=== PATIENT | male | born 1940 | race Caucasian/White ===

== ENCOUNTER → 2017-05-28 | Outpatient (CLI) | payer MEDICARE, OTHER ==
[~2017-05-28] MED LIST: ACTO45TA8 PO; AMLO5 PO; ASPI81CH CHEW; GLUC10TA3 PO; LIPI40TA PO; METF500 PO; MOBI15TA PO; OXYC1TAB63 PO; VESI5TAB PO; XARE20TA PO; ZETI10TA5 PO; ZOLP5TAB3 PO; [UNRECOGNIZED DRUG - CODE] PO
[2017-05-28 13:47] LABS: ANION GAP 6 MEQ/L (5-15); AST (GOT) 14 U/L (15-37); BICARBONATE 31.7 MEQ/L (21.0-32.0); BLOOD UREA NITROGEN 20 MG/DL (7-18); CHLORIDE 101 MEQ/L (98-107); GLOMERULAR FILTRATION RATE 58 ML/MIN (>89); POTASSIUM 4.4 MEQ/L (3.5-5.1); SODIUM (NA) 139 MEQ/L (136-145)
[2017-05-28 14:03] LABS: ALKALINE PHOSPHATASE 90 U/L (45-117); ALT (GPT) 17 U/L (12-78); GLUCOSE,FASTING 183 MG/DL (74-99); HDL CHOLESTEROL 72.7 MG/DL (40.0-60.0); LDL CHOLESTEROL 59 MG/DL (0-99); TOTAL BILIRUBIN ADULT 0.3 MG/DL (0.2-1.0)
== END ==
LOC: PLAB 08:43
PROVIDERS: ATTEND Family Medicine
DX: E78.2 Mixed hyperlipidemia (principal)
CPT/HCPCS: 36415; 80053; 80061

== ENCOUNTER → 2017-10-01 | Outpatient (CLI) | payer MEDICARE, OTHER ==
[2017-10-01 13:44] LABS: ALBUMIN 3.7 GM/DL (3.4-5.0); AST (GOT) 18 U/L (15-37); BICARBONATE 28.5 MEQ/L (21.0-32.0); BLOOD UREA NITROGEN 21 MG/DL (7-18); CALCIUM 9.2 MG/DL (8.5-10.1); CHLORIDE 101 MEQ/L (98-107); CREATININE 1.23 MG/DL (0.60-1.30); GLOMERULAR FILTRATION RATE 57 ML/MIN (>89); GLUCOSE,FASTING 215 MG/DL (74-99); SODIUM (NA) 137 MEQ/L (136-145)
[2017-10-01 13:46] LABS: CHOLESTEROL 151 MG/DL (120-200)
[2017-10-01 13:49] LABS: ALKALINE PHOSPHATASE 77 U/L (45-117); ALT (GPT) 18 U/L (12-78); CHOLESTEROL/ HDL RATIO 2.02 RATIO; HDL CHOLESTEROL 74.7 MG/DL (40.0-60.0); LDL CHOLESTEROL 58 MG/DL (0-99); TOTAL BILIRUBIN ADULT 0.4 MG/DL (0.2-1.0); TOTAL PROTEIN 7.1 GM/DL (6.4-8.2); TRIGLYCERIDES 93 MG/DL (42-150)
== END ==
LOC: PLAB 10:23
PROVIDERS: ATTEND Family Medicine
DX: E78.2 Mixed hyperlipidemia (principal); Z85.46 Personal history of malignant neoplasm of prostate
CPT/HCPCS: 36415; 80053; 80061; 84153

== ENCOUNTER → 2018-05-28 | Outpatient (CLI) | payer MEDICARE, OTHER ==
[~2018-05-28] MED LIST changes: +ACTO45TA15 PO; -ACTO45TA8 PO; +ASPI-516 CHEW; -ASPI81CH CHEW; +EZET10 PO; -VESI5TAB PO; +VESI5TAB2 PO; -ZETI10TA5 PO
[2018-05-28 16:47] LABS: ALBUMIN 3.6 GM/DL (3.4-5.0); BICARBONATE 24.5 MEQ/L (21.0-32.0); BLOOD UREA NITROGEN 15 MG/DL (7-18); CALCIUM 9.1 MG/DL (8.5-10.1); CHLORIDE 100 MEQ/L (98-107); SODIUM (NA) 134 MEQ/L (136-145)
[2018-05-28 16:52] LABS: ALKALINE PHOSPHATASE 83 U/L (45-117); ALT (GPT) 18 U/L (12-78); AST (GOT) 20 U/L (15-37); CHOLESTEROL 138 MG/DL (120-200); CHOLESTEROL/ HDL RATIO 2.01 RATIO; CREATININE 1.25 MG/DL (0.60-1.30); GLOMERULAR FILTRATION RATE 56 ML/MIN (>89); GLUCOSE,FASTING 164 MG/DL (74-99); HDL CHOLESTEROL 68.4 MG/DL (40.0-60.0); LDL CHOLESTEROL 53 MG/DL (0-99); TOTAL BILIRUBIN ADULT 0.4 MG/DL (0.2-1.0); TOTAL PROTEIN 6.9 GM/DL (6.4-8.2); TRIGLYCERIDES 85 MG/DL (42-150)
== END ==
LOC: PLAB 11:56
PROVIDERS: ATTEND Family Medicine
DX: E78.2 Mixed hyperlipidemia (principal)
CPT/HCPCS: 36415; 80053; 80061